=== PATIENT | male | born 2000 | race Hispanic/Latino ===

== ENCOUNTER 2023-09-05 18:56 | Emergency (ER) | payer OTHER ==
[~2023-09-05] VITALS: Ht 152.4 cm; Wt 96.2 kg
[2023-09-05] MEDS ORDERED: KETOROLAC 15MG/ML VIAL (15MG/ML) ONE (19:58)
[2023-09-05] MEDS ORDERED: KETOROLAC 30MG VIAL (30MG/ML) IM ONE (20:00)
[2023-09-05] MEDS ORDERED: TETANUS/DIPHTHERIA TOXOID [ADULT] 0.5 ML VIAL IM ONE (20:30)
[2023-09-05 22:24] VITALS: BP 121/68; PULSE 78; RESP 18; O2SAT 100
[2023-09-05] MEDS ORDERED: NAPR-1180 PO (22:28)
[2023-09-05] MEDS ORDERED: DOXY100T2 PO (22:28)
== END 2023-09-05 22:39 | disposition home or self-care (01) ==
LOC: EDH 18:56
DX: S01.21XA Laceration without foreign body of nose, initial encounter (principal); Z88.0 Allergy status to penicillin; Z79.899 Other long term (current) drug therapy; W54.0XXA Bitten by dog, initial encounter; Y93.89 Activity, other specified; Y92.89 Other specified places as the place of occurrence of the external cause; Y99.8 Other external cause status
CPT/HCPCS: 99284; 90714; 70150; 96372; 90471; J1885